=== PATIENT | male | born 2000 | race Caucasian/White ===

== ENCOUNTER 2018-09-25 19:43 | Emergency (ER) | payer BC ==
--- NOTE | 2018-09-25 19:55 | EDPHY ---
General - History Smoking Status: Never smoked Time Seen by Provider: 09/25/18 19:55 Narrative: CLINICAL IMPRESSION: Abdominal pain ASSESSMENT/PLAN: Patient is a 18-year-old male with a history of attention deficit hyperactivity disorder and anxiety who presents to the emergency department with nausea, dry heaving and lower abdominal pain. Patient is afebrile, he is in no acute distress and not toxic-appearing. His abdomen was soft, tenderness to palpation in the suprapubic and right lower quadrant. CBC revealed no evidence of leukocytosis. His vital signs were reviewed and there was no evidence of sepsis or serious bacterial illness. BMP revealed no significant metabolic abnormality. Urinalysis with no evidence of infection, no evidence of UTI or pyelonephritis. Ultrasound revealed a normal appearing pending however the tip was mildly dilated. Proceeded with CT abdomen and pelvis which revealed a normal appearing appendix, also found to have a moderate amount of retained fecal material consistent with constipation. Patient with a very reassuring workup in the emergency department, query if symptoms are secondary to underlying constipation. No findings to suggest acute appendicitis, obstruction , perforation or other acute life-threatening intra-abdominal process. Discussed bowel regimen with patient, referral provided for PCP. Return precautions discussed. DIFFERENTIAL DX: Abdominal pain including but not limited to appendicitis, cholecystitis, gastritis, constipation, obstruction, perforation and urinary tract infection. ED COURSE: 2123: Ultrasound reveals appendix within normal limits however tip is mildly and large which could be indicative of early tip appendicitis. Will proceed with CT. CHIEF COMPLAINT: Abdominal pain HPI: Patient is a 18-year-old male with a history of attention deficit hyperactivity disorder and anxiety who presents to the emergency department with periumbilical abdominal pain. Patient reports yesterday morning he woke up feeling nauseous, shortly thereafter started to develop some periumbilical and generalized lower abdominal pain. The pain has been waxing and waning in its intensity, it is dull at baseline and stabbing in nature when most severe. Patient proceeded to feel nauseous and have multiple episodes of dry heaving throughout yesterday and this morning. He has been able to tolerate p.o., last ate this evening at around 7:00 p.m.. Patient denies any fevers, chills, chest pain or shortness of breath. He denies any sick contacts, antibiotic use or recent travel. He denies any urinary symptoms to include dysuria, hematuria or frequency, denies any flank pain. He did have a solid, normal bowel movement 4 hr prior to arrival, denies melena or hematochezia. He denies any testicular pain or swelling. He denies ever experiencing anything like this before. Patient denies marijuana use or tobacco use. PMH: Anxiety, attention deficit hyperactivity disorder Pertinent Past Surgical History: Tonsillectomy, wisdom teeth extraction Family History: Not contributory Social History: Rare alcohol. Denies illicit drug use, cigarette smoking. REVIEW OF SYSTEMS: All other systems negative Constitutional: No fever, no chills, appetite change. Eyes: No discharge, vision change ENT: No sore throat, congestion, ear pain. Cardiovascular: No chest pain, no palpitations. Respiratory: No cough, no shortness of breath. Gastrointestinal: Abdominal pain, nausea and dry heaving. Genitourinary: No hematuria, dysuria, flank pain. Musculoskeletal: No back pain, joint swelling, joint pain, myalgias. Skin: No rashes, color change. Neurological: No headache, dizziness, weakness. PHYSICAL EXAM: General Appearance: Mildly uncomfortable appearing however not toxic-appearing. HENT: Normocephalic, atraumatic. Bilateral external ears are normal. Bilateral tympanic membranes are normal with pearly conley reflex. Nares are clear, mucosa is pink. Oropharynx is clear, mucosa is mildly dry, uvula is midline. There is no tonsillar enlargement or exudate. The dentition is normal. Eyes: PERRLA. Conjunctiva pink, no pallor or injection. Neck: Supple, nontender, no lymphadenopathy, no midline pain, FROM, no meningismus. Respiratory: There are no retractions, lungs are clear to auscultation. Cardiac: Regular rate and rhythm, no murmurs or gallops. Gastrointestinal: Patient's abdomen is thin, soft and nondistended. Patient is tender in the periumbilical region, suprapubic region and right lower quadrants. Positive Rovsing's. Negative Quiñones sign. No masses or hernias appreciated. Bowel sounds are present. Neurological: Alert and oriented x 3, CN 2-12 grossly intact, normal sensation and strength. Skin: Warm, dry, no rashes, no nodules on palpation. Musculoskeletal: Extremities are symmetrical, full range of motion, no tenderness, deformity, swelling, or erythema. Psychiatric: Mood and affect are normal, there is no agitation. MEDICAL DECISION MAKING: Patient was seen independently. Secondary supervising physician at time of evaluation was Dr. Sky, she did not evaluate this patient. Diagnosis: Abdominal pain, constipation. Summary: See Assessment and Plan for summary of ED visit Clinical lab tests: ordered / reviewed. Independent visualization of images, tracing, or specimens: Yes. Decision to obtain medical records or history from someone other than the patient: No Review / Summarize previous medical records: Yes Discussed patient with another provider: Yes, Dr. Sky and Dr. Dominguez Patient Progress: Stable, discharged. (Malena Taylor) Discussion: The patient was evaluated and managed by the Physician Mold Checker. I discussed the patient's presentation and course with the midlevel provider with them and agree with the evaluation. My co-signature indicates that I have reviewed this chart and I agree with the findings and plan of care as documented. I am the secondary supervising physician. (Richelle Sky) - Objective Vital Signs: Initial Vital Signs Temperature (C) 36.7 C 09/25/18 19:44 Heart Rate 74 09/25/18 19:44 Respiratory Rate 16 09/25/18 19:44 Blood Pressure 134/75 H 09/25/18 19:44 O2 Sat (%) 97 09/25/18 19:44 O2 Delivery Mode Room Air Allergies/Adverse Reactions: No Known Allergies Allergy (Unverified 09/25/18 19:46) Home Medications: Medication Instructions Recorded Adderall 10 MG (*) 09/25/18 Gabapentin 09/25/18 Laboratory Results: Laboratory Results 09/25/18 19:57 09/25/18 19:57 Departure - Departure Disposition: Home, Routine, Self-Care Clinical Impression: Abdominal pain, Constipation Condition: Good Instructions: Abdominal Pain (ED) Additional Instructions: DISCHARGE INSTRUCTIONS FROM YOUR PROVIDER Thank you for visiting our emergency department today. Please keep in mind that discharge from the emergency department does not mean that there is nothing wrong - it simply means that we have not identified an emergency condition that requires further evaluation or treatment in the hospital. You should always plan to follow up with primary care for re-evaluation of your condition in the next 2-3 days. Rest, push non-diuretic, non-caffeinated fluids, clear liquid diet, then a BRAT diet (bananas, rice, applesauce, toast), then slowly advance diet to normal. Attempt small frequent meals. You were noted to have a lot of constipation on your CT. It is important that you stay hydrated, I would recommend Colace 100 mg twice per day for the next several days. Also use MiraLax, 1 cap full 3 times a day until you have a bowel movement. Please make sure your diet is high in fiber in the future. Schedule a follow-up appointment with your primary care physician in the next 1- 2 days for re-evaluation. Bring a copy of your test results with you to that appointment. Return for increased or unmanageable pain, new site or character of pain, flank pain, groin pain, pelvic pain, development of fever, chills, recurrent vomiting , vomiting blood or coffee grounds, diarrhea, constipation, bloody stools, black tarry stools, burning or pain with urination, bloody urine, inability to urinate, decreased urine output or other signs of dehydration, dizziness, weakness, fainting, difficulty breathing or swallowing, chest pain, or for any other new, worsening or worrisome symptoms. People present with illnesses and injuries in different ways, and it is always possible that we have missed something. Again, thank you for choosing our emergency department. We hope that you feel better. Referrals: Robyn Escobar MD [Medical Doctor] - 2-3 days, call for appt. (Please establish care with a primary care provider.)
[2018-09-25 20:21] LABS: PLATELET COUNT 308 10^3/uL (150-400)
[2018-09-25] MEDS ORDERED: IOPAMIDOL (ISOVUE-300) 100 ML BTL ONE (21:27)
[2018-09-25 22:37] VITALS: BP 120/66
== END 2018-09-25 22:36 | disposition home or self-care (01) ==
DX: K59.00 Constipation, unspecified (principal); R10.33 Periumbilical pain
CPT/HCPCS: Q9967